=== PATIENT | male | born 1990 | race Caucasian/White ===

== ENCOUNTER 2022-11-27 16:00 | Emergency (ER) | payer OTHER ==
[~2022-11-27] VITALS: Ht 170.2 cm; Wt 77.1 kg
[2022-11-27 16:38] VITALS: BP_SYST 143; PULSE 87; RESP 16; TEMP 99.3; O2SAT 99
== END 2022-11-27 21:45 | disposition left against medical advice (07) ==
LOC: SED 16:00
DX: M25.571 Pain in right ankle and joints of right foot (principal); M25.572 Pain in left ankle and joints of left foot; M25.532 Pain in left wrist; Z53.21 Procedure and treatment not carried out due to patient leaving prior to being seen by health care provider
CPT/HCPCS: 99281